=== PATIENT | male | born 1945 | race Caucasian/White ===

== ENCOUNTER 2019-01-02 13:35 | Emergency (ER) | payer OTHER ==
--- NOTE | 2019-01-02 14:02 | ED Physician Documentation ---
PD HPI LOWER EXT INJURY - Stated complaint Stated Complaint: R ARM/L LEG INJ - Chief complaint Chief Complaint: Ext Problem - History obtained from History obtained from: Patient - History of Present Illness PD HPI LOW EXT INJURY LOCATION: Right (Has burn R forearm 1 week ago touching a hot piece of metal.), Left ([place] a pop in the ankle while pressing down 3 weeks ago. Became discolored which is improving by rubbing essential oils on it.) Review of Systems Ten Systems: 10 systems reviewed and negative Constitutional: reports: Reviewed and negative Nose: reports: Reviewed and negative Throat: reports: Reviewed and negative Cardiac: reports: Reviewed and negative PD PAST MEDICAL HISTORY - Present Medications Home Medications: Ambulatory Orders Medication Instructions Recorded Confirmed Knee Scooter 1 unit TD ONCE #1 01/02/19 - Allergies Allergies/Adverse Reactions: Allergies Allergy/AdvReac Type Severity Reaction Status Date / Time No Known Drug Allergies Allergy Verified 01/02/19 13:43 PD ED PE NORMAL - Vitals Vital signs reviewed: Yes - General General: Alert and oriented X 3, No acute distress - Extremities Extremities: No deformity (1%TBSA partial thickness burn anterior R forearm), Other (Mild TTP L achilles without limited ROM or weakness in flexion. But there is no movement of the foot with Pierson's test and there is some fullness of the inferior part of the Achilles suggesting partial tear.) - Neuro Neuro: Alert and oriented X 3, Normal speech Results - Vitals Vitals: Vital Signs - 24 hr 01/02/19 01/02/19 01/02/19 13:37 14:45 15:56 Temperature 36.6 C Heart Rate 71 104 H 62 Respiratory 14 16 16 Rate Blood Pressure 129/82 H 130/107 H 142/85 H O2 Saturation 97 97 96 Oxygen O2 Source Room air - Rads (name of study) LLE DUPLEX Radiology: EMP read contemporaneously (NEG) Procedures - Splint (location) LLE Splint applied by: Tech Type of splint: Fiberglass, Short leg, Posterior Other: Patient tolerated well, No complications, Neurovascular intact, Crutches provided PD MEDICAL DECISION MAKING - ED course ED course: 73-year-old gentleman with what clinically represents probably a partial Achilles tear on the left is 3 weeks old. He also has a partial-thickness burn on the right, he was discussed with wound care on that and his tetanus is up-to-date. He really did not want to go into fiberglass and be nonweightbearing. The case was discussed by phone with Dr. Lopez who felt that ideally he would go in his splint but if the patient refused he could go into a boot with a lot of cast padding in the heel such that his heel was raised up 2 to 4 cm and he could start to weight-bear. I discussed the options with the patient and he chose that option, he understands this is not ideal and may delay healing or contribute to subsequent need for surgery and he voices understanding. He was placed in the boot with lots of cast padding in the heel so that he is plantarflexed. However after some time he thought better of it and wanted to go into the full fiberglass splint. Departure - Departure Disposition: 01 Home, Self Care Clinical Impression: Second degree burn of right arm Qualifiers: Encounter type: initial encounter Upper extremity location: forearm Qualified Code(s): T22.211A - Burn of second degree of right forearm, initial encounter Partial Achilles tendon tear Qualifiers: Encounter type: initial encounter Laterality: left Qualified Code(s): S86.012A - Strain of left Achilles tendon, initial encounter Condition: Good Record reviewed to determine appropriate education?: Yes Instructions: ED Burn D 2nd Follow-Up: [facility] [Provider Group] Prescriptions: Knee Scooter 1 unit TD ONCE #1 Comments: Tylenol as needed for the pain. Wear the boot with lots of cast padding in the heel so that your foot is pointed down at all times until you follow-up with the orthopedic surgeon. Walk gingerly. Be especially careful on stairs and non- flat ground. Call the orthopedic surgeon's office tomorrow to arrange for follow-up appointment. As discussed for the burn you can wash it simply with soap and water once a day and keep it moist with bacitracin ointment and a nonstick dressing.
[2019-01-02] MEDS ORDERED: BACITRACIN OINT TOP STA (14:20)
--- NOTE | 2019-01-02 15:14 | Ultrasound Report ---
Reason: calf pain Procedure Date: 01/02/2019 Accession Number: [id number] / [id number] Procedure: US - Duplex Ext Veins Left CPT Code: FULL RESULT: EXAM: LEFT LOWER EXTREMITY VENOUS ULTRASOUND. EXAM DATE: 01/02/2019 02:56 PM. CLINICAL HISTORY: Calf pain. COMPARISON: None. TECHNIQUE: Real-time sonographic vascular imaging was performed by the senior biostatistician through the lower extremity utilizing both color-flow and Doppler spectral analysis. Multiple patient services representative static images were saved for review. FINDINGS: Common Femoral Vein (CFV): Normal. CFV-GSV Junction: Normal. Profunda Femoral Vein (PFV): Normal. Femoral Vein (FV) Prox: Normal. Femoral Vein (FV) Mid: Normal. Femoral Vein (FV) Dist: Normal. Popliteal Vein: Normal. Posterior Tibial Veins: Normal. Peroneal Veins: Normal. Other: None. IMPRESSION: No evidence for left lower extremity deep venous thrombosis. RADIA
[2019-01-02 17:22] VITALS: BP 125/78
== END 2019-01-02 17:22 | disposition home or self-care (01) ==
LOC: ED 13:35
DX: S86.012A Strain of left Achilles tendon, initial encounter (principal); X50.1XXA Overexertion from prolonged static or awkward postures, initial encounter; T22.211A Burn of second degree of right forearm, initial encounter; X18.XXXA Contact with other hot metals, initial encounter
CPT/HCPCS: 29515; 99283

== ENCOUNTER 2021-06-13 14:29 | Emergency (ER) | payer MEDICARE, OTHER ==
--- NOTE | 2021-06-13 15:45 | ED Physician Documentation ---
PD HPI SKIN - Stated complaint Stated Complaint: RASH ON CHEST - Chief complaint Chief Complaint: Allergic Rx - History obtained from History obtained from: Patient - History of Present Illness Timing - onset: How many weeks ago (1) Timing - duration: Weeks (1) Timing - details: Gradual onset, Still present Location: Neck, Chest Quality / character: Itchy, Discolored, Raised, Swelling Improved by: Benadryl Associated symptoms: No: Fever, Myalgias, Joint pain, Headache, Facial swelling, Dyspnea, Abd pain, N/V/D, Urinary sx Contributing factors: Unknown Similar symptoms before: Has not had sx before Recently seen: Not recently seen - Additional information Additional information: 76-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 The area is erythematous and raised and is extremely itchy. He has had this for about a week he has had some calamine to it he is put on some Benadryl cream as well both these seem to help a little bit with the itching but the rash has not gone away. He does state that he has been using some new chemicals at work but he does not believe he has contacted them directly with this area. He does not wear a V-neck shirt or coveralls with a zip down front. I am not able to elicit a historical factor with the specific area contacted. Review of Systems Constitutional: denies: Fever Eyes: denies: Decreased vision Ears: denies: Ear pain Nose: denies: Congestion Throat: denies: Sore throat Cardiac: denies: Chest pain / pressure, Palpitations Respiratory: denies: Dyspnea GI: denies: Nausea, Vomiting : denies: Dysuria Skin: reports: Rash Musculoskeletal: denies: Neck pain, Back pain, Extremity pain PD PAST MEDICAL HISTORY - Past Medical History Past Medical History: Yes Cardiovascular: None Respiratory: Other Neuro: None Endocrine/Autoimmune: None GI: None : None HEENT: Chronic vision loss Psych: None Musculoskeletal: None Derm: None - Past Surgical History Past Surgical History: Yes Ortho: Amputation - Present Medications Home Medications: Ambulatory Orders Medication Instructions Recorded Confirmed predniSONE [Deltasone] 40 mg PO DAILY 5 Days #10 tablet 06/13/21 - Allergies Allergies/Adverse Reactions: Allergies Allergy/AdvReac Type Severity Reaction Status Date / Time No Known Drug Allergies Allergy Verified 06/13/21 14:37 - Social History Does the pt smoke?: No Smoking Status: Never smoker Does the pt drink ETOH?: Yes Does the pt have substance abuse?: No - Immunizations Immunizations are current?: Yes - POLST Patient has POLST: No PD ED PE NORMAL - Vitals Vital signs reviewed: Yes (Hypertensive) - General General: Alert and oriented X 3, No acute distress, Well developed/nourished - HEENT HEENT: Atraumatic, PERRL, EOMI - Neck Neck: Supple, no meningeal sign, No bony TTP - Cardiac Cardiac: RRR, No murmur - Respiratory Respiratory: No respiratory distress, Clear bilaterally - Back Back: No CVA TTP, No spinal TTP - Derm Derm: Normal color, Warm and dry, Other (Over the anterior chest in a V pattern from the clavicles down to the sternum and up to the sternocleidal notch there is a rash erythematous raised and not urticarial. No target appearance.) - Extremities Extremities: No deformity, No edema - Neuro Neuro: Alert and oriented X 3, section gang 2-12 intact, No motor deficit, No sensory deficit, Normal speech Eye Opening: Spontaneous Motor: Obeys Commands Verbal: Oriented GCS Score: 15 - Psych Psych: Normal mood, Normal affect Results - Vitals Vitals: Vital Signs - 24 hr 06/13/21 06/13/21 14:31 16:02 Temperature 37.1 C 36.4 C L Heart Rate 59 L 57 L Respiratory 16 16 Rate Blood Pressure 151/81 H 142/87 H O2 Saturation 93 96 Oxygen O2 Source Room air PD MEDICAL DECISION MAKING - ED course Complexity details: reviewed results, re-evaluated patient, considered differential, d/w patient ED course: 76-year-old male with a nonspecific erythematous rash to his anterior chest has suspicion for contact dermatitis. There is a well demarcated area that is involved and not elsewhere. I am not historically able to elicit a specific exposure. He does have chemicals that he uses a work and he has changed these chemicals. I have prescribed the patient prednisone 40 mg daily for 5 days and I have asked him to go home shower the area off and use [id number] hydrocortisone. I have asked him to take the prednisone if he does not have resolution. Departure - Departure Disposition: 01 Home, Self Care Clinical Impression: Contact dermatitis Qualifiers: Contact dermatitis type: irritant Contact dermatitis trigger: unspecified trigger Qualified Code(s): L24.9 - Irritant contact dermatitis, unspecified cause Condition: Stable Instructions: ED Dermatitis Contact Follow-Up: CARLA DEVINE DO [Primary Care Provider] - Prescriptions: predniSONE [Deltasone] 40 mg PO DAILY 5 Days #10 tablet Discharge Date/Time: 06/13/21 16:04
[2021-06-13 16:04] VITALS: BP 142/87
== END 2021-06-13 16:04 | disposition home or self-care (01) ==
LOC: ED 14:29
DX: L24.9 Irritant contact dermatitis, unspecified cause (principal); H54.7 Unspecified visual loss
CPT/HCPCS: 99282; 99283